=== PATIENT | female | born 1980 | race Caucasian/White ===

== ENCOUNTER 2020-02-13 08:00 | Inpatient (IN) | payer OTHER ==
[2020-02-07 14:07] VITALS: BMI 21.4
--- NOTE | 2020-02-12 10:59 | HP ---
Admitting History and Physical - Primary Care Physician PCP: Pasquale Kiran - Admission Chief Complaint: right breast cancer History of Present Illness: 39 year old premenapausal female with some Ashkenazi heritage on fathers side and BRCA 1+ mutation. She underwent partial right breast mastectomy with Dr Julito Monet for an invasive ductal carcinoma Er+/RI+HER2+. She never received a sentenel node on final pathology but had clear margins. She now is deciding on bilateral mastectomies since she is BRCA1+. She finished TH chemotherapy. History Source: Patient Limitations to Obtaining History: No Limitations - Past Medical History ...LMP: 12/11/19 ...LMP Comment: PT ON CHEMO - Past Surgical History Additional Past Surgical History: right breast wide excision for IDC ER+/RI+ HER2+ no SNBX on final path clear margins BRCA1+. - Smoking History Smoking history: Never smoked Have you smoked in the past 12 months: No Home Medications - Allergies Allergies/Adverse Reactions: Allergies Allergy/AdvReac Type Severity Reaction Status Date / Time No Known Allergies Allergy Verified 02/07/20 14:00 - Home Medications Home Medications: Ambulatory Orders Cholecalciferol (Vitamin D3) [Vitamin D3] 2,000 iu PO DAILY 02/07/20 Herceptin 1 each IV MONTHLY 02/07/20 Loratadine [Claritin] 10 mg PO DAILY 02/07/20 Family Medical History Family Hx Cancer: Mother (breast ca 66 BRCA-), Father (esophageal cancer), Brother (brothersx2 polycystic renal dz) Physical Examination Constitutional: Yes: Well Nourished Breast(s): Yes: Other (Full A cup with obvious retroareolar incision right breast and mastopexy no palpable axillary adenopathy left breast negative) Problem List - Problems (1) Breast cancer, right breast Problems reviewed: Yes Code(s): C50.911 - MALIGNANT NEOPLASM OF UNSP SITE OF RIGHT FEMALE BREAST Qualifiers: Breast location: overlapping sites of breast Estrogen receptor status: positive Patient sex: female Qualified Code(s): C50.811 - Malignant neoplasm of overlapping sites of right female breast; Z17.0 - Estrogen receptor positive status [ER+] Assessment/Plan Bilateral total mastectomies , right sentenel node biopsy ,possible axillary node dissection, lymphoscintogram, reconstruction
[2020-02-13] MEDS ORDERED: BUPIVACAINE HCL/PF 2.5 MG/ML - 30 ML VIAL IJ ONE (09:36)
[2020-02-13] MEDS ORDERED: SODIUM CHLORIDE 0.9% P/F 10 ML VIAL IJ ONE (09:36)
[2020-02-13] MEDS ORDERED: BUPIVACAINE LIPOSOME/PF (EXPAREL) 266 MG/20 ML VIAL ONE (09:36)
[2020-02-13] MEDS ORDERED: MIDAZOLAM HCL 2 MG/2 ML SINGLE DOSE VIAL ONE ×2 (10:14→10:32)
[2020-02-13] MEDS ORDERED: ROCURONIUM BROMIDE 50 MG/5 ML SYRINGE ONE ×2 (10:37→11:48)
[2020-02-13] MEDS ORDERED: LIDOCAINE HCL/PF 2% SDV 5ML VIAL ONE (10:50)
[2020-02-13] MEDS ORDERED: ONDANSETRON 4 MG/2 ML VIAL ONE (10:50)
[2020-02-13] MEDS ORDERED: ceFAZolin SODIUM 1 GM VIAL ONE ×2 (10:50→13:59)
[2020-02-13] MEDS ORDERED: DEXAMETHASONE SOD PHOSPHATE 4 MG/1 ML VIAL ONE (10:50)
[2020-02-13] MEDS ORDERED: ONDANSETRON 4 MG/2 ML VIAL IVPUSH PRN ×2 (12:25→13:54)
[2020-02-13] MEDS ORDERED: LACTATED RINGERS SOLUTION 1,000 ML IV SCH (12:30)
[2020-02-13] MEDS ORDERED: ZOLPIDEM TARTRATE 5 MG TABLET PO PRN (13:54)
[2020-02-13] MEDS ORDERED: KETOROLAC TROMETHAMINE 30 MG/1 ML VIAL ONE (14:00)
[2020-02-13] MEDS ORDERED: DEXTROSE 5%-0.45% SALINE 1,000 ML IV SCH (14:00)
[2020-02-13] MEDS ORDERED: PROPOFOL 20 ML ONE (14:07)
--- NOTE | 2020-02-13 14:57 | OP ---
Operative Note - Note: Operative Date: 02/13/20 Pre-Operative Diagnosis: right breast cancer Operation: s/p b/l nipple sparing mastetomy/reconstruction with allograft dermis and implants. Right axillary sentinel node biopsy Surgeon: Eusebio Buckley Grain Broker: Yulia Jon Anesthesiologist/WILDLAND FIRE FIGHTER: Renetta Martin MD Anesthesia: General Specimens Removed: b/l breast tissue Fluid Volume Replaced (mls): 2,000 Operative Report Dictated: Yes
[2020-02-13] MEDS: CEFAZOLIN 1 GM/D5W 1 GM/50 ML BAG IVPB SCH ×2 (16:46→20:29)
--- NOTE | 2020-02-13 18:24 | SURG ---
Surgery Axle Bearing Polisher Note Axle Bearing Polisher: Yulia Jon PA-C Date of Service: 02/13/20 Diagnosis: right breast cancer Procedure: s/p b/l nipple sparing mastetomy/reconstruction with allograft dermis and implants. Right axillary sentinel node biopsy I was present for the entirety of the operative procedure. For further detail, please refer to operative report. Visit type - Case Type Case Type: Scheduled - Emergency Emergency Visit: No - New patient This patient is new to me today: Yes Date on this admission: 02/13/20
[2020-02-13] MEDS: ACETAMINOPHEN 325 MG TABLET (FP) PO PRN (21:56)
[2020-02-14] MEDS: CEFAZOLIN 1 GM/D5W 1 GM/50 ML BAG IVPB SCH ×3 (02:34→20:51)
[2020-02-14] MEDS: HEPARIN NA (PORCINE) 5,000 UNITS/ML 1ML VIAL SQ SCH ×2 (08:10→21:20)
[2020-02-14 08:30] LABS: HEMATOCRIT 26.1 % (32.4-45.2); MCH 30.3 pg (25.7-33.7); MCHC 34.4 g/dl (32.0-36.0); MEAN CELL VOLUME 88.1 fl (80-96); MEAN PLT VOLUME 7.4 fl (7.5-11.1); PLATELET COUNT 250 K/MM3 (134-434); RBC 2.96 M/mm3 (3.60-5.2); RDW 12.6 % (11.6-15.6); WHITE BLOOD COUNT 11.9 K/mm3 (4.0-10.8)
--- NOTE | 2020-02-14 09:36 | PN ---
Progress Note, Physician Chief Complaint: S/P bilateral mastectomy with right sentinel bx and implant reconstruction POD #1 History of Present Illness: Patient was seen today and stated that she felt dizzy/faint last night x one episode which was witnessed by nurse. This am she reports right more then left chest discomfort otherwise she is tolerating po well. - Current Medication List Current Medications: Active Medications Acetaminophen (Tylenol -) 650 mg PO Q4H PRN PRN Reason: FEVER Last Admin: 02/13/20 21:56 Dose: 650 mg Documented by: Cholecalciferol (Vitamin D3 -) 2,000 unit PO DAILY [facility] Heparin Sodium (Porcine) (Heparin -) 5,000 unit SQ BID [facility] Dextrose/Sodium Chloride (D5-1/2ns -) 1,000 mls @ 100 mls/hr IV ASDIR [facility] Last Admin: 02/13/20 16:46 Dose: Not Given Documented by: Cefazolin Sodium (Ancef 1 Gm Premixed Ivpb -) 1 gm in 50 mls @ 100 mls/hr IVPB Q6H-IV [facility] Stop: 02/20/20 14:59 Last Admin: 02/14/20 02:34 Dose: 100 mls/hr Documented by: Ondansetron HCl (Zofran Injection) 4 mg IVPUSH Q6H PRN PRN Reason: NAUSEA AND/OR VOMITING Zolpidem Tartrate (Ambien -) 5 mg PO HS PRN PRN Reason: Insomnia - Objective Vital Signs: Vital Signs Temperature 98.6 F 02/14/20 04:00 Pulse Rate 71 02/14/20 04:00 Respiratory Rate 18 02/14/20 04:00 Blood Pressure 99/54 L 02/14/20 04:00 O2 Sat by Pulse Oximetry (%) 100 02/14/20 04:00 Constitutional: Yes: Calm Breast(s): Yes: Other (Right nipple was noted to have a very small area of epidermilysis otherwise the nipple/areolar complex bilaterally with good color. The dressings are clean without discharge. Drains x 4 with serosanginous fluid) Labs: CBC, BMP 02/14/20 07:16 Assessment/Plan S/P bilateral mastectomy, right sentinel node bx with implant reconstruction POD #1 Plan OOB today with assistance TRISTEN training Continue current tx regime Plan for discharge in am
[2020-02-14] MEDS: CHOLECALCIFEROL (VIT D3) 1,000 UNIT (25 MCG) TABLET PO SCH (09:38)
[2020-02-14] MEDS: ACETAMINOPHEN 325 MG TABLET (FP) PO PRN ×2 (09:38→23:05)
[2020-02-14] MEDS ORDERED: oxyCODONE HCL 5 MG TABLET ONE (10:00)
[2020-02-14] MEDS ORDERED: DOCUSATE SODIUM 100 MG CAPSULE (FP) PO PRN (11:02)
--- NOTE | 2020-02-14 11:39 | OP ---
DATE OF OPERATION: 02/13/2020 PREOPERATIVE DIAGNOSIS: History of right breast cancer, 6 o'clock overlapping regions, with genetic susceptibility for breast cancer. POSTOPERATIVE DIAGNOSIS: History of right breast cancer, 6 o'clock overlapping regions, with genetic susceptibility for breast cancer. PROCEDURE: Bilateral nipple-sparing mastectomies with right axillary sentinel lymph node biopsy and bilateral subpectoral direct implant reconstruction. ANESTHESIA: General endotracheal anesthesia. PRIMARY SURGEON: Enriqueta Vilchis MD OPTOMETRIC AIDE: ISAMAR Lafleur Primary surgeon for the bilateral direct implant, subpectoral implant reconstruction is Enriqueta Buckley MD, with his law office assistant ISAMAR Bender. COMPLICATIONS: There were no complications. INDICATIONS: Briefly, the patient is a 39-year-old G2, P2, premenopausal white female of Ashkenazi Hinduism descent. The patient was found to have multifocal right breast cancer in the right breast 6 o'clock region on mammography and ultrasound in July of 2019. Ultrasound core showed a moderately differentiated invasive duct cancer which was ER/LA positive, HER-2 positive, and she did genetic tests, BRCA1 positive. She was seen by another surgeon at [facility], who performed a right breast wide excision and mastopexy approach. The patient then underwent TH chemotherapy. She has decided to go forward with bilateral mastectomies and was seen by me in consultation after chemotherapy and was offered nipple-sparing prophylactic bilateral mastectomies. She was seen by the plastic surgeon preoperatively and chose to have bilateral direct implant reconstruction. She was presented in tumor board, and it was felt that she did require a sentinel lymph node biopsy since at the time of her first surgery she never had a sentinel lymph node biopsy performed appropriately. She was brought in for the procedure on February 13, 2020, and first underwent a lymphoscintigraphy through a periareolar injection of technetium 99 at [facility] and was brought to the [place] holding area. In the holding area, site verification was made and informed consent was obtained. She was marked preoperatively by the plastic surgeon. She did undergo COVID testing preoperatively, which was negative. DESCRIPTION OF PROCEDURE: She was brought into the operating room and laid on the OR table in a supine position. Venodynes were placed on the lower extremities prior to induction. She received 2 g of Ancef prior to incision. She underwent general endotracheal anesthesia. Both breasts were sterilely prepped and draped in the usual fashion. No blue dye was injected since we were doing nipple-sparing procedures. Timeout was performed. The surgery was begun with the right axillary sentinel lymph node biopsy. Incision was made using the prior the sentinel lymph node incision, and dissection was undertaken and the dye did not travel well; however, we were able to find a sentinel lymph node in the level I region of right axilla with a 10-second gamma count of about 66. Background count this node was only 6. The node was sent for permanent section, had a very benign appearance, and no further nodes were removed. Grossly, there was no suspicious adenopathy. The axillary wound was closed using interrupted 2-0 plain suture, then the skin was closed using interrupted 3-0 deep dermal Vicryl suture and a running 4-0 subcuticular Biosyn suture. Mastisol and Steri-Strips were applied over the axillary wound. The mastectomies were then performed. Starting with the right side, a 9-cm inframammary incision was made underneath the right breast and skin edges were everted, and the mastectomy was performed using the PEAK radiofrequency device. The breast tissues were retracted inferiorly and the skin flap was raised superiorly to the level of the clavicle, medially to the level of the sternum, laterally to the level of the latissimus, and inferiorly to the level of the inframammary fold. The breast was taken out off the pectoralis major muscle using electrocautery from inferomedial to superolateral and completely removed intact. It was oriented with a long lateral, short superior suture and weighed to allow for appropriate cosmetic result. The breast tissue was then placed in formalin to be sent down to pathology as specimen. The skin flaps were trimmed to remove all visible breast tissue. Hemostasis was achieved and the wound was copiously irrigated with warm sterile saline. A retroareolar biopsy was taken underneath the right nipple-areolar complex, sent for frozen second, came back negative, so the nipple was spared. She did have the previous circumareolar incision. At this point gloves were changed and the left breast mastectomy was performed, again using a symmetrical inframammary incision in the left breast inframammary fold about 9 cm in length. Again the skin edges were everted and the breast was retracted inferiorly using [place] clamps. The skin flap was raised using the PEAK radiofrequency device superiorly to the level of the clavicle, medially to the level of the sternum, laterally to the level of the latissimus, and inferiorly below the level of the inframammary fold. The breast was taken out off the pectoralis major muscle from medial to lateral, completely removed intact. It was oriented with a long lateral, short superior suture and weighed to allow for appropriate cosmetic result. Breast specimen was then sent to pathology in formalin. The skin edges were then inspected and the skin flap was trimmed to allow for appropriate cosmetic result and to remove all visible breast tissue. A retroareolar biopsy was taken underneath the left nipple-areolar complex and sent for frozen section and came back negative, so the left nipple was spared. Hemostasis was achieved and the wound was copiously irrigated. At this point Dr. Buckley became the primary surgeon and performed bilateral subpectoral direct implant reconstructions using Cortiva sutured into the inferolateral aspects of both pectoralis major muscles to allow for the direct implant reconstruction. All wounds will be closed separately by Dr. Buckley. We did use Exparel diluted into 60 mL, and 30 mL was injected onto each chest wall bilaterally for postoperative pain control. Two Anshu drains will be placed around each implant and brought through separate stab incisions on a lateral skin fold and placed on TRISTEN cell bulb suction. We did use the SPY skin perfusion device during the case, and she had delayed perfusion to the nipple on the right side as expected; however, perfusion was good enough to preserve the nipple. The patient will be recovered in the postanesthesia care unit and will be admitted postoperatively for pain management and wound management. All sponge and needle counts were correct at this point in the case, and estimated blood loss was about 125 mL. She was hemodynamically stable throughout. ENRIQUETA VILCHIS M.D. [id number]
--- NOTE | 2020-02-14 12:11 | PN ---
Progress Note (short form) - Note Progress Note: ANESTHESIA POST OP 39 YO FEMALE POD#1 S/P BL MASTECTOMY WITH RECONSTRUCTION UNDER GETA Patient resting in bed. Pain has been an issue, but she has some response to pain medications. Tolerating PO VSS, Afebrile Continue current care. Encouraged ambulation and use of IS. No anesthetic complications
[2020-02-14] MEDS: diazePAM 5 MG TABLET PO PRN (19:34)
[2020-02-14] MEDS: oxyCODONE HCL 5 MG TABLET PO PRN (19:35)
[2020-02-15] MEDS: CEFAZOLIN 1 GM/D5W 1 GM/50 ML BAG IVPB SCH ×2 (02:30→09:10)
[2020-02-15] MEDS: diazePAM 5 MG TABLET PO PRN (09:10)
[2020-02-15] MEDS: CHOLECALCIFEROL (VIT D3) 1,000 UNIT (25 MCG) TABLET PO SCH (10:05)
[2020-02-15] MEDS: HEPARIN NA (PORCINE) 5,000 UNITS/ML 1ML VIAL SQ SCH (10:10)
--- NOTE | 2020-02-15 11:53 | PN ---
Progress Note, Physician Chief Complaint: Feels better, less unsteadiness, pain under control. - Current Medication List Current Medications: Active Medications Acetaminophen (Tylenol -) 650 mg PO Q4H PRN PRN Reason: FEVER Last Admin: 02/14/20 23:05 Dose: 650 mg Documented by: Cholecalciferol (Vitamin D3 -) 2,000 unit PO DAILY [facility] Last Admin: 02/14/20 09:38 Dose: 2,000 unit Documented by: Diazepam (Valium -) 5 mg PO Q8H PRN PRN Reason: ANXIETY Last Admin: 02/14/20 19:34 Dose: 5 mg Documented by: Docusate Sodium (Colace -) 100 mg PO BID PRN PRN Reason: CONSTIPATION Heparin Sodium (Porcine) (Heparin -) 5,000 unit SQ BID [facility] Last Admin: 02/14/20 21:20 Dose: 5,000 unit Documented by: Dextrose/Sodium Chloride (D5-1/2ns -) 1,000 mls @ 100 mls/hr IV ASDIR [facility] Last Admin: 02/13/20 16:46 Dose: Not Given Documented by: Cefazolin Sodium (Ancef 1 Gm Premixed Ivpb -) 1 gm in 50 mls @ 100 mls/hr IVPB Q6H-IV [facility] Stop: 02/20/20 14:59 Last Admin: 02/15/20 02:30 Dose: 100 mls/hr Documented by: Ondansetron HCl (Zofran Injection) 4 mg IVPUSH Q6H PRN PRN Reason: NAUSEA AND/OR VOMITING Oxycodone HCl (Roxicodone -) 10 mg PO Q6H PRN PRN Reason: PAIN LEVEL 6-10 Last Admin: 02/14/20 19:35 Dose: 10 mg Documented by: Zolpidem Tartrate (Ambien -) 5 mg PO HS PRN PRN Reason: Insomnia - Objective Vital Signs: Vital Signs Temperature 99.1 F 02/15/20 07:00 Pulse Rate 92 H 02/15/20 07:00 Respiratory Rate 18 02/15/20 09:00 Blood Pressure 101/55 L 02/15/20 07:00 O2 Sat by Pulse Oximetry (%) 100 02/15/20 09:00 Constitutional: Yes: Well Nourished Breast(s): Yes: Other (Healing well, without signs of infection. Viable flaps.) Labs: CBC, BMP 02/14/20 07:16 Assessment/Plan Doing well post-operatively. Continue observation and monitor vitals and ambulation.
[2020-02-15 14:06] VITALS: BP 94/55; PULSE 107; TEMP 98
--- NOTE | 2020-02-15 14:10 | DS ---
Physical Examination Vital Signs: Vital Signs Temperature 98 F 02/15/20 14:04 Pulse Rate 107 H 02/15/20 14:04 Respiratory Rate 16 02/15/20 14:04 Blood Pressure 94/55 L 02/15/20 14:04 O2 Sat by Pulse Oximetry (%) 100 02/15/20 14:04 Constitutional: Yes: No Distress Wound/Incision: Yes: Clean/Dry Labs: CBC, BMP 02/14/20 07:16 Discharge Summary Problems reviewed: Yes Reason For Visit: RIGHT BREAST CA Condition: Good - Instructions Diet, Activity, Other Instructions: BREAST SURGERY INSTRUCTIONS Ranulfo Kiran M.D., FACS Pasquale Kiran M.D., FACS Ani Ray M.D., FACS 1. Please call the office at to make a follow up appointment with your surgeon. This number can be also used for any urgent issues you may have. 2. Call us immediately if any of the following occur: *Bleeding from the incision or drain site (a small amount is normal) *Fever or chills *Redness and worsening tenderness around the surgical site *Drainage of pus or fluid from the incision or drain site 3. You may change the surgical dressing two (2) days after your surgery, and may shower then. If you have drains, you may shower after they have been removed, until then take a sponge bath. 4. It is normal for there to be some bruising and tenderness around the surgical site, and the breast may also be firm in this area. 5. Your surgeon used 3M DuraPrep Surgical Solution, a bacteria-killing skin preparation. It is recommended that this film remain on the skin after the procedure. The film will gradually wear away. If, however, early removal is desired: 1. Apply 8610 or 8611 3M Remover solution to the prepped area, keeping away from the wound edge or puncture site. Wipe off with a disposable towel. OR 2. Soak gauze with 70% Isopropyl alcohol and place on the prepped area for at least 40 seconds. Lightly scrub to remove the solution. 6. Please wear a comfortable bra (sports or surgical bra) all day and all night until your first follow-up visit with your surgeon. 7. The pain medicine you have been prescribed may make you constipated; make sure you drink plenty of water. You may use an over the counter laxative if needed. 8. You may resume your normal diet after surgery, although you may want to avoid rich foods for the first twenty-four (24) hours after surgery. Alcoholic drinks should be avoided while taking the prescribed pain medicine. 9. You may resume normal activities as long as there is no discomfort, but do not do upper body exercises until after your follow-up appointment. Do not lift anything heavier than a large phone book. You may resume driving once you have stopped taking the prescribed pain medicine and feel comfortable doing arm movements. Referrals: Pasquale Kiran MD [Staff Physician] - Eusebio Buckley MD [Staff Physician] - Disposition: HOME - Home Medications Comprehensive Discharge Medication List: Ambulatory Orders Cholecalciferol (Vitamin D3) [Vitamin D3] 2,000 iu PO DAILY 02/07/20 Herceptin 1 each IV MONTHLY 02/07/20 Loratadine [Claritin] 10 mg PO DAILY 02/07/20 Cefadroxil 500 mg PO BID #20 capsule 02/14/20 Oxycodone HCl 10 mg PO TID #20 tablet MDD 4 02/14/20
[2020-02-15] MEDS: oxyCODONE HCL 5 MG TABLET PO PRN (15:00)
[2020-02-15] MEDS: ACETAMINOPHEN 325 MG TABLET (FP) PO PRN (15:00)
--- NOTE | 2020-02-18 16:28 | PATH ---
Surgical Pathology Report Patient Name: SUDARSHAN CONTRERAS Med. Rec. #: [id number] /Age/Gender: 1980 (Age: 39) / F Account: [id number] Location: [facility] MED-SURG Taken: 02/13/2020 Received: 02/13/2020 Reported: 02/18/2020 Physicians: Pasquale Kiran M.D. Specimen(s) Received A: LEFT RETROAREOLAR BIOPSY (FS) B: RIGHT RETROAREOLAR BIOPSY (FS) C: RIGHT AXILLARY SENTINEL NODE # 1 D: RIGHT MASTECTOMY E: LEFT MASTECTOMY Clinical History BRCA+ with recent h/o R partial mastectomy (done elsewhere) Intraoperative Consult Diagnosis A. Left retroareolar biopsy, frozen section: Negative for malignancy. B. Right retroareolar biopsy, frozen section: Negative for malignancy. Berkley Witt, 02/13/20 Final Diagnosis A. RETROAREOLA, LEFT, BIOPSY (FS): BENIGN BREAST TISSUE; NEGATIVE FOR MALIGNANCY. B. RETROAREOLA, RIGHT, BIOPSY (FS): BENIGN BREAST TISSUE; NEGATIVE FOR MALIGNANCY. C. LYMPH NODE, RIGHT AXILLARY SENTINEL #1, EXCISION: ONE LYMPH NODE, NEGATIVE FOR METASTATIC CARCINOMA (0/1). D. BREAST, RIGHT, NIPPLE-SPARING MASTECTOMY: BENIGN BREAST TISSUE SHOWING PRIOR BIOPSY CAVITY WITH FOREIGN BODY GIANT CELL REACTION. NO RESIDUAL CARCINOMA IS IDENTIFIED. E. BREAST, LEFT, NIPPLE-SPARING MASTECTOMY: BENIGN BREAST TISSUE SHOWING SMALL FIBROADENOMA, SMALL RADIAL SCAR AND FIBROCYSTIC CHANGES. Electronically Signed Aide Sellers M.D. Gross Description A. Received fresh for frozen section evaluation, labeled, "left retroareolar biopsy" is a 1.2 x 1 x 0.2 cm portion of pink-dup[place] tissue. Frozen section is performed on the specimen. The frozen section residue is entirely submitted in one cassette. B. Received fresh for frozen section evaluation, labeled, "right retroareolar biopsy" is a 1.3 x 1.2 x 0.2 cm portion of pink-dupont tissue. Frozen section is performed on the specimen. The frozen section residue is entirely submitted in one cassette. C. Received in formalin labeled "right axillary sentinel node," is a 0.8 x 0.5 x 0.2 cm dupont lymph node with attached fat. The specimen is submitted in toto in one cassette. D. Received in formalin, labeled "right breast mastectomy," is a 251 gram, 15.0 x 11.5 x 2.8 cm. right mastectomy specimen with a short suture marking the superior aspect and a long suture marking the lateral aspect of the specimen, per the surgeon. There is no skin or nipple present. The deep margin is inked black and the anterior soft tissue margin is inked blue. The specimen is serially sectioned from lateral to medial. Sectioning reveals abundant multifocal dense white fibrous tissue. There is multifocal blue suture material embedded within the breast tissue. No masses are identified. Pinion And Wheel Truer sections are submitted in 14 cassettes as follows: 1-2-upper outer quadrant; 3-5-lower outer quadrant; 6-8-upper inner quadrant; 9-12-lower inner quadrant; 13-anterior soft tissue margin; 14-deep margin. E. Received in formalin, labeled "left breast mastectomy," is a 277 gram, 13.0 x 12.0 x 3.4 cm. left mastectomy specimen with a short suture marking the superior aspect and a long suture marking the lateral aspect of the specimen, per the surgeon. There is no skin or nipple present. The deep margin is inked black and the anterior soft tissue margin is inked blue. The specimen is serially sectioned from medial to lateral. Sectioning reveals abundant dense, white, focally firm fibrous tissue. No definitive mass is identified. Pinion And Wheel Truer sections are submitted in 14 cassettes as follows: 1-3-upper outer quadrant; 4-6-lower outer quadrant; 7-9-upper inner quadrant; 10-12-lower inner quadrant; 13-anterior soft tissue margin; 14-deep margin. Time to formalin fixation: Not given Total formalin fixation time: Approximately 29 hours AE/02/13/2020 ebram/02/13/2020
--- NOTE | 2020-02-24 09:31 | OP ---
DATE OF OPERATION: DATE OF DICTATION: 02/20/2020 PREOPERATIVE DIAGNOSES: 1. Bilateral acquired chest wall deformity status post bilateral mastectomy (611.89). 2. Personal history of genetic carcinoma. POSTOPERATIVE DIAGNOSES: 1. Bilateral acquired chest wall deformity status post bilateral mastectomy (611.89). 2. Personal history of genetic carcinoma. PROCEDURE: 1. Right immediate breast reconstruction utilizing immediate insertion of silicone breast implant and AlloDerm reconstruction with Cortiva 1-mm tailored allograft dermis. 2. Left immediate breast reconstruction utilizing immediate insertion of silicone breast implant and AlloDerm reconstruction with Cortiva 1-mm tailored allograft dermis. 3. Intravenous injection of indocyanine green dye and intraoperative diagnostic evaluation of non-coronary intraoperative fluorescein vascular angiography x 2. SURGEON: Dr. Brandi Buckley ANESTHESIA: General. OPERATIVE PROCEDURE IN DETAIL: The patient was taken to the operating room. After induction of general anesthesia in the supine position, both arms were extended and padded. Venodyne boots were placed. The entire chest wall was painted with ChloraPrep solution over its entire extent, and sterile drapes were placed in the usual fashion. The markings, which had been made in the standing position preoperatively, were reoutlined with the patient's knowledge. Time-out procedure was performed. Attention was turned by Dr. Kiran to the mastectomies. Bilateral inframammary incisions were made and Dr. Kiran performed mastectomies. This will be dictated under separate cover. Upon completion of the mastectomies, the wounds were copiously irrigated and attention was turned to the right breast. A subpectoral dissection was begun on the right breast, superiorly from the second rib, medially to the sternal fibers, and down to the inframammary fold, elevating the pectoralis major muscle from its insertion. At this point, Cortiva 1-mm tailored allograft dermis was brought into the field and sutured superiorly along the pectoralis major muscle after rehydration. This was carried along the lateral mammary fold and down the side of the breast reconstruction. At this point, a 620-mL implant was chosen. This implant was placed and then sutured with 3-0 Vicryl suture continued along the inframammary fold, completely covering the implant itself. The exact same procedure was carried out symmetrically on the opposite breast, also placing a 620-mL implant in the same subpectoral pocket. Good symmetry was seen in the sitting position. After the implants were in place, the patient was injected with 10 mL of indocyanine green dye and the Spy imaging system was brought into the field. The skin flowed to the right and left breasts and the nipple areolar complex, and the entire skin flaps were evaluated and seen to be viable with good blood flow. Two Anshu drains were brought out through separate stab wounds laterally. The Smart Infuser pump catheter was inserted medially and into the subpectoral position. Both wounds were closed symmetrically using 3-0 PDS suture on the deep tissue, 3-0 in a deep dermal fashion, and 4-0 in a subcuticular fashion. Both wounds were dressed sterilely with Mastisol and Steri-Strips with a surgical bra and a compression strap. The patient tolerated the procedure well. She was awakened, extubated and transferred to the recovery room in satisfactory condition. The seo assistant was present during the entire portion of the operation and closure. ENRIQUETA BUCKLEY M.D. [id number] [place]
== END 2020-02-15 15:20 | disposition home or self-care (01) | DRG 581 ==
LOC: EDSTATUS 08:00 → FM/S 09:14
PROVIDERS: ADMIT Surgery Surgical Oncology; ATTEND Surgery Surgical Oncology
PROC: 0HTV0ZZ Resection of Bilateral Breast, Open Approach (ICD-10-PCS; principal; 2020-02-13 11:05)
PROC: 07B50ZX Excision of Right Axillary Lymphatic, Open Approach, Diagnostic (ICD-10-PCS; 2020-02-13 11:05)
PROC: 0HRV0JZ Replacement of Bilateral Breast with Synthetic Substitute, Open Approach (ICD-10-PCS; 2020-02-13 11:05)
DX: C50.811 Malignant neoplasm of overlapping sites of right female breast (principal); Z15.01 Genetic susceptibility to malignant neoplasm of breast; Z17.0 Estrogen receptor positive status [ER+]; R42 Dizziness and giddiness
CPT/HCPCS: 36415; 78195-TC; 84703; 85027; 88307-TC; 88331-TC; 94760; A9541; J1644

== ENCOUNTER 2021-04-29 06:22 | Day surgery (SDC) | payer OTHER ==
[2021-04-21 14:34] VITALS: BMI 20.7
[2021-04-29] MEDS ORDERED: SCOPOLAMINE HYDROBROMIDE 1 PATCH PATCH.TD72 ONE (07:33)
[2021-04-29] MEDS ORDERED: EPINEPHrine/PF 1 MG/1 ML (1:1,000) AMPULE ONE (07:43)
[2021-04-29] MEDS ORDERED: ceFAZolin SODIUM 1 GM VIAL ONE ×2 (07:43→07:44)
[2021-04-29] MEDS ORDERED: GENTAMICIN SO4 80 MG/2 ML VIAL ONE (07:43)
[2021-04-29] MEDS ORDERED: KETOROLAC TROMETHAMINE 30 MG/1 ML VIAL ONE (07:44)
[2021-04-29] MEDS ORDERED: LIDOCAINE 1%/EPI 1:100000 (20 ML MULTI DOSE VIAL) ONE (07:44)
[2021-04-29] MEDS ORDERED: fentaNYL CITRATE 250 MCG/5 ML VIAL ONE (07:44)
[2021-04-29] MEDS ORDERED: LIDOCAINE HCL 2% JELLY (5 ML/TUBE) ONE (07:44)
[2021-04-29] MEDS ORDERED: ONDANSETRON 4 MG/2 ML VIAL ONE (07:44)
[2021-04-29] MEDS ORDERED: DEXAMETHASONE SOD PHOSPHATE 4 MG/1 ML VIAL ONE (07:44)
[2021-04-29] MEDS ORDERED: PROPOFOL 20 ML ONE ×4 (07:44)
[2021-04-29] MEDS ORDERED: BUPIVACAINE HCL 100 ML ONE (07:44)
[2021-04-29] MEDS ORDERED: LIDOCAINE HCL 1%, 10 MG/ML (20ML VIAL) ONE ×2 (07:44→07:55)
[2021-04-29] MEDS ORDERED: SUCCINYLCHOLINE CHLORIDE 200 MG/10 ML SYRINGE ONE (07:45)
[2021-04-29] MEDS ORDERED: MIDAZOLAM HCL 2 MG/2 ML SINGLE DOSE VIAL ONE (07:45)
[2021-04-29] MEDS ORDERED: VANCOMYCIN 1,000 MG VIAL (RESTRICTED TO ID ONLY) ONE (07:47)
[2021-04-29] MEDS ORDERED: SEVOFLURANE 250 ML BTL ONE (08:11)
[2021-04-29] MEDS ORDERED: ONDANSETRON 4 MG/2 ML VIAL IVPUSH PRN (09:50)
[2021-04-29] MEDS ORDERED: PROMETHAZINE HCL 25 MG/1 ML VIAL IVPUSH PRN (09:50)
[2021-04-29] MEDS ORDERED: oxyCODONE HCL 5 MG TABLET PO PRN ×2 (09:50)
[2021-04-29 10:43] VITALS: TEMP 97.9
[2021-04-29 11:25] VITALS: BP 124/72; PULSE 84
== END 2021-04-29 11:30 | disposition home or self-care (01) ==
LOC: FASU 06:22
PROVIDERS: ATTEND Plastic Surgery
PROC: 0HWT0JZ Revision of Synthetic Substitute in Right Breast, Open Approach (ICD-10-PCS; 2021-04-29)
PROC: 0HPU0JZ Removal of Synthetic Substitute from Left Breast, Open Approach (ICD-10-PCS; 2021-04-29)
PROC: 0HPT0JZ Removal of Synthetic Substitute from Right Breast, Open Approach (ICD-10-PCS; 2021-04-29)
PROC: 0HRV0JZ Replacement of Bilateral Breast with Synthetic Substitute, Open Approach (ICD-10-PCS; 2021-04-29)
PROC: 0HUV07Z Supplement Bilateral Breast with Autologous Tissue Substitute, Open Approach (ICD-10-PCS; 2021-04-29)
PROC: 0JBM0ZZ Excision of Left Upper Leg Subcutaneous Tissue and Fascia, Open Approach (ICD-10-PCS; 2021-04-29)
PROC: 0JBL0ZZ Excision of Right Upper Leg Subcutaneous Tissue and Fascia, Open Approach (ICD-10-PCS; 2021-04-29)
PROC: 0HX7XZZ Transfer Abdomen Skin, External Approach (ICD-10-PCS; 2021-04-29)
PROC: 0HWU0JZ Revision of Synthetic Substitute in Left Breast, Open Approach (ICD-10-PCS; principal; 2021-04-29 08:23)
DX: M95.4 Acquired deformity of chest and rib (principal); Z90.13 Acquired absence of bilateral breasts and nipples; N65.1 Disproportion of reconstructed breast; T85.44XA Capsular contracture of breast implant, initial encounter; Y82.8 Other medical devices associated with adverse incidents; Y92.9 Unspecified place or not applicable
CPT/HCPCS: 14001; 19342; 19380; L8600; 94760